=== PATIENT | male | born 1955 | race Caucasian/White ===

== ENCOUNTER 2017-01-20 22:01 | Emergency (ER) | payer OTHER ==
[~2017-01-20] VITALS: Ht 175.3 cm; Wt 98.9 kg
[2017-01-20 22:10] VITALS: BP 124/70
--- NOTE | 2017-01-20 22:30 | PHYS DOC ---
Past Medical History Past Medical History: A-Fib, Hypertension Additional Past Medical Histor: SLEEP APNEA Past Surgical History: Other Additional Past Surgical Histo: COLON RESECTION Additional Information: 0.5 PPD Alcohol Use: None Drug Use: None Adult General Chief Complaint Chief Complaint: LOWER BACK PAIN OR INJURY HPI HPI Patient is a 61 year old male with history of hypertension and A. fib who presents today complaining of moderate right low back pain that began today when he tripped and fell. Patient denies any loss of consciousness. Denies any pain radiating to bilateral lower extremities. Denies any loss of bowel bladder function. Review of Systems Review of Systems Constitutional: Denies fever or chills [] GI: Denies abdominal pain, nausea, vomiting, bloody stools or diarrhea [] : Denies dysuria or hematuria [] Musculoskeletal: Right low back pain radiating to the right lower extremity Integument: Denies rash or skin lesions [] Neurologic: Denies headache, focal weakness or sensory changes [] All other systems were reviewed and found to be within normal limits, except as documented in this note. Current Medications Current Medications Current Medications Medications (Trade) Dose Ordered Sig/Anthony Start Time Stop Time Status Last Admin Dose Admin Acetaminophen/ Hydrocodone Bitart (Lortab 5/325) 2 tab 1X ONCE 01/20/17 23:00 01/20/17 23:01 DC 01/20/17 22:32 2 TAB Allergies Allergies Allergies Coded Allergies Type Severity Reaction Last Updated Verified Sulfa (Sulfonamide Antibiotics) Allergy Intermediate 01/20/17 Yes Physical Exam Physical Exam Constitutional: Well developed, well nourished, no acute distress, non-toxic appearance. [] Abdomen: Bowel sounds normal, soft, no tenderness, no masses, no pulsatile masses. [] Skin: Warm, dry, no erythema, no rash. [] Back: Diffuse paraspinal muscle tenderness to the right lumbar spine, no midline lumbar spine tenderness, no CVA tenderness. [] Extremities: No tenderness, no cyanosis, no clubbing, ROM intact, no edema. [] Neurologic: Alert and oriented X 3, normal motor function, normal sensory function, no focal deficits noted. [] Psychologic: Affect normal, judgement normal, mood normal. [] Current Patient Data Vital Signs Vital Signs Date Time Temp Pulse Resp B/P (MAP) Pulse Ox O2 Delivery O2 Flow Rate FiO2 01/20/17 22:32 22 98 Room Air 01/20/17 22:10 97.6 66 97.6 EKG EKG [] Radiology/Procedures Radiology/Procedures [] Course & Med Decision Making Course & Med Decision Making Pertinent Labs and Imaging studies reviewed. (See chart for details) Patient is in the ED with lumbar contusion after falling today. Lumbar spine x- rays interpreted by Dr. Londono were negative for any acute findings but noted for DJD of the lumbar spine. Patient has no hematuria. He has no cauda equina syndrome symptoms. He was discharged with instructions to follow-up with his PCP in the course of this week. Ice recommended to the affected area. Dragon Disclaimer Dragon Disclaimer This electronic medical record was generated, in whole or in part, using a voice recognition dictation system. Departure Departure Impression: Primary Impression: Lumbar contusion Additional Impressions: Fall from standing DJD (degenerative joint disease), lumbar Disposition: 01 HOME, SELF-CARE Condition: STABLE Referrals: LUANNE DUDLEY MD follow up with your doctor in 1 weeks Patient Instructions: Back Pain, Adult, [id number], Contusion, [id number] Additional Instructions: You were seen for lumbar contusion after falling. Apply ice to the affected area. Take the prescribed medicines as needed for pain. Follow-up with the primary care doctor in the next 7 days. Please return to the emergency room if you have any concerning symptoms. Scripts Diazepam (VALIUM) 5 Mg Tablet 5 MG PO TID Y for MUSCLE SPASMS, #15 TAB Prov: SAÚL MCGOVERN [employer]ORER 01/20/17 Hydrocodone/Apap 5-325 (NORCO 5-325 TABLET) 1 Each Tablet 1-2 TAB PO Q4-6HRS Y for PAIN, #20 TAB Prov: SAÚL MCGOVERN [employer]ORER 01/20/17 Problem Qualifiers Primary Impression: Lumbar contusion Encounter type: initial encounter Qualified Codes: S30.0XXA - Contusion of lower back and pelvis, initial encounter Additional Impressions: Fall from standing Encounter type: initial encounter Qualified Codes: W19.XXXA - Unspecified fall, initial encounter DJD (degenerative joint disease), lumbar Spinal osteoarthritis complication: unspecified spinal osteoarthritis Qualified Codes: M47.816 - Spondylosis without myelopathy or radiculopathy, lumbar region MUTSAÚL MCCLELLAN APRN Jan 20, 2017 22:30
[2017-01-20] MEDS ORDERED: HYDROcodone/APAP 5/325MG 1 TAB TABLET PO ONE (23:00)
[2017-01-20] MEDS ORDERED: HYDR-971 PO (23:16)
[2017-01-20] MEDS ORDERED: DIAZ5TAB PO (23:16)
--- NOTE | 2017-01-21 08:42 | RAD ---
Indication: Pain after fall. Technique: 3 views of the lumbosacral spine are submitted for review. No comparison is available. Findings: There is mild dextrocurvature centered at L3. There is grade 1 anterolisthesis at L4-L5. There is facet hypertrophy greatest at L4-L5 and L5-S1. There is endplate spurring throughout the lumbar spine. There may be minimal retrolisthesis at T12-L1. There is no fracture. There is atheromatous disease in the abdominal aorta. Impression: Moderate degenerative changes in the lumbar spine.
== END 2017-01-20 23:25 | disposition home or self-care (01) ==
LOC: ER 22:01
DX: S30.0XXA Contusion of lower back and pelvis, initial encounter (principal); M47.816 Spondylosis without myelopathy or radiculopathy, lumbar region; I48.91 Unspecified atrial fibrillation; I10 Essential (primary) hypertension; G47.30 Sleep apnea, unspecified; F17.200 Nicotine dependence, unspecified, uncomplicated; Z88.2 Allergy status to sulfonamides; W01.0XXA Fall on same level from slipping, tripping and stumbling without subsequent striking against object, initial encounter; Y93.89 Activity, other specified; Y99.8 Other external cause status; Y92.89 Other specified places as the place of occurrence of the external cause
CPT/HCPCS: 72100; 99284

== ENCOUNTER → 2018-09-10 | Day surgery (SDC) | payer OTHER ==
[~2018-09-10] MED LIST: APIX5TAB PO; DIAZ5TAB PO; DILT90TA PO; FLEC100T PO; HYDR-3164 PO; HYDROmorphone 2 MG/ML VIAL IV PRN; LIDOCAINE 2% PF 5 ML VIAL. ONE; LOSA-73 PO; MORPHINE SULFATE 2 MG/ML VIAL. IV PRN; ONDANSETRON PF 4 MG/2 ML VIAL. IV PRN; PROCHLORPERAZINE 10 MG/2 ML VIAL. IV PRN; PROPOFOL 40 ML IV ONE; fentaNYL PF VIAL 100 MCG/2 ML VIAL IV PRN
[2018-09-10] MEDS: IV RINGERS,LACTATED 1000ML 1,000 ML IV SCH ×2 (06:29→06:30)
[2018-09-10 07:41] VITALS: BP 99/58
--- NOTE | 2018-09-11 15:07 | PATHOLOGY ---
[facility] Accession Number: [id number] . 01 Material submitted: . PART A: colon - SIGMOID POLYP. Modifiers: sigmoid PART B: rectum - RECTAL POLYP . 01 Clinical history: . Hx polyps, CRCS . 02 Diagnosis: A. Colon biopsy, sigmoid colon polyp: - Tubular adenoma. . B. Colorectal biopsy, rectal polyp: - Tubular adenoma. ([facility] 09/11/2018) P/09/11/2018 . 02 Comment: There is no high grade dysplasia or evidence of malignancy. ([facility] 09/11/2018) . 02 Electronically signed: . Deejay Melgar MD, Pathologist NPI- [id number] . 01 Gross description: . A. Received in formalin labeled "Aston Alejandro, sigmoid polyp," is a single segment of guillory soft tissue measuring 0.6 cm in maximum dimension. The specimen is entirely submitted in cassette A1. . B. Received in formalin labeled "Aston Alejandro, rectal polyp," is a single segment of guillory soft tissue measuring 0.4 cm in maximum dimension. The specimen is entirely submitted in cassette B1. ([facility]; 09/10/2018) TOB/TOB . 02 Pathologist provided ICD-10: D12.5, D12.8 . 02 CPT . 253512, 913976 Specimen Comment: A courtesy copy of this report has been sent to Specimen Comment: [phone], . Specimen Comment: Report sent to / DR DUDLEY Performed at: [address], [place], [place] [id number] MD Evin Latahm MD Phone: [phone] Performed at: 02 [facility] [address] [place], [place] [id number] MD Deejay Melgar MD Phone: [phone]
== END ==
LOC: SURG 05:56
PROVIDERS: ATTEND Internal Medicine Gastroenterology
DX: D12.5 Benign neoplasm of sigmoid colon (principal); D12.8 Benign neoplasm of rectum; K57.30 Diverticulosis of large intestine without perforation or abscess without bleeding; K64.0 First degree hemorrhoids; I10 Essential (primary) hypertension; F15.90 Other stimulant use, unspecified, uncomplicated; Z80.0 Family history of malignant neoplasm of digestive organs; Z98.890 Other specified postprocedural states; Z88.1 Allergy status to other antibiotic agents; Z86.010 Personal history of colon polyps; Z72.89 Other problems related to lifestyle; Z72.0 Tobacco use; Z90.49 Acquired absence of other specified parts of digestive tract
CPT/HCPCS: 45385; 88305; J2001; J2704; 45380

== ENCOUNTER → 2018-09-11 | Outpatient (CLI) | payer OTHER ==
[2018-09-10 07:41] VITALS: BP 99/58
[~2018-09-11] MED LIST changes: -HYDROmorphone 2 MG/ML VIAL IV PRN; -LIDOCAINE 2% PF 5 ML VIAL. ONE; -MORPHINE SULFATE 2 MG/ML VIAL. IV PRN; -ONDANSETRON PF 4 MG/2 ML VIAL. IV PRN; -PROCHLORPERAZINE 10 MG/2 ML VIAL. IV PRN; -PROPOFOL 40 ML IV ONE; -fentaNYL PF VIAL 100 MCG/2 ML VIAL IV PRN
--- NOTE | 2018-09-11 11:25 | RAD ---
LUMBAR SPINE 2-3V History: Reduced range of motion, history of pain Comparison: January 20, 2017 Findings: 3 views lumbar spine are submitted. There is again mild grade 1 anterior spondylolisthesis at L4-5, negligible posterior subluxation L2 relative L3. There is again advanced narrowing of the L5-S1 intervertebral disc space with likely interbody fusion, mild to moderate degenerative disc disease such as L1-2 and L2-3 and to a somewhat lesser degree at L3-4 and L4-5. There is multilevel lumbar spondylosis greater superiorly. There is multilevel lumbar facet degenerative change greater inferiorly. There is atherosclerotic calcification abdominal aorta. There is very mild lumbar dextroscoliosis. Impression: 1. Radiographic findings are similar compared with the January 2017 exam. There is multilevel lumbar degenerative disease and spondylosis as well as facet degenerative change. There is mild abnormal alignment as stated. Electronically signed by: Volodymyr Mustafa MD (09/11/2018 11:22 AM) [id number]
--- NOTE | 2018-09-11 12:54 | RAD ---
AP view of the pelvis and two-view study of both hips Clinical indications: Reduced range of motion. FINDINGS: The hip joints are symmetric without significant arthritic change. No acute fracture or dislocation or lytic process is seen. No diastases of the symphysis pubis or either SI joint is seen. IMPRESSION: No significant osseous abnormality. Electronically signed by: Brennan Up MD (09/11/2018 12:52 PM) [facility]
== END | disposition home or self-care (01) ==
LOC: RAD 10:04
PROVIDERS: ATTEND Family Medicine
DX: Z02.71 Encounter for disability determination (principal); M47.816 Spondylosis without myelopathy or radiculopathy, lumbar region; M43.16 Spondylolisthesis, lumbar region; M48.07 Spinal stenosis, lumbosacral region; I70.0 Atherosclerosis of aorta; M53.2X6 Spinal instabilities, lumbar region
CPT/HCPCS: 72100; 73521